=== PATIENT | male | born 1960 | race Caucasian/White ===

== ENCOUNTER 2022-04-21 12:03 | Emergency (ER) | payer BC ==
[~2022-04-21] VITALS: Ht 182.9 cm; Wt 90.7 kg
--- NOTE | 2022-04-21 12:11 | NUR ---
THE PATIENT BIBS FOR MED REFILL FOR BENAZEPPRIL-HCTZ 10-12.5 MG AND LIPITOR 20 MG. WILL CONTINUE TO MONITOR THE PATIENT.
[2022-04-21 12:55] VITALS: BP 191/105
[2022-04-21] MEDS ORDERED: ATEN25TA PO (13:15)
[2022-04-21] MEDS ORDERED: ATOR40TA PO (13:15)
[2022-04-21] MEDS ORDERED: LISI1TAB32 PO (13:15)
--- NOTE | 2022-04-21 13:32 | NUR ---
Patient discharged to home in stable condition. Written and verbal after care instructions given. Patient verbalizes understanding of instruction.
--- NOTE | 2022-04-21 13:32 | NUR ---
DR KEARNS AWARE OF PATIENT`S BLOOD PRESSURE OF 175/84, HR 72. NO NEW ORDERS PER MD.
== END 2022-04-21 13:33 | disposition home or self-care (01) ==
LOC: ER 12:06
DX: I10 Essential (primary) hypertension (principal); Z76.0 Encounter for issue of repeat prescription; E78.5 Hyperlipidemia, unspecified